=== PATIENT | male | born 1985 | race Caucasian/White ===

== ENCOUNTER 2022-02-22 01:48 | Emergency (ER) | payer BC, SELFPAY ==
[2022-02-22 01:50] VITALS: BP 131/95; PULSE 83; RESP 13; TEMP 35.8; O2SAT 100; BMI 22.4
--- NOTE | 2022-02-22 01:54 | RAD_ITS ---
STUDY: X-RAY CHEST REASON FOR EXAM: Male, 36 years old. cp TECHNIQUE: Single AP portable view of the chest. COMPARISON: None. FINDINGS: The lungs are clear and expanded. There is no demonstrated pleural abnormality. Normal size heart. Normal mediastinum and keith. Normal visualized pulmonary arteries. Normal visualized aortic arch and descending thoracic aorta. Normal visualized thoracic spine. Old healed right clavicle fracture. There is no demonstrated abnormality of the visualized soft tissue structures of the upper abdomen. RAD/Chest 1 View (Portable) IMPRESSION: No demonstrated acute cardiopulmonary process. Electronically Signed: Tanya Raygoza MD at 2:24 EST ,
--- NOTE | 2022-02-22 01:55 | EDS_ITS ---
HPI History of Present Illness Chief Complaint: Chest Pain Informant: patient Onset/Context/Timing Onset: Days Narrative Narrative: Patient presents after having 2 brief episodes of tachycardia and chest pain. Both times he was sitting at rest. His heart rate would rise to around 150. He states he would do deep breathing for a minute or 2 and his heart rate would slow back down. He would have chest pressure during the episode but as soon as his heart rate slowed down the chest pressure would lindsey. He believes he may have thoracic outlet syndrome after breaking his right clavicle approximate 10 years ago. He states his right arm stays darkly discolored when being held in his side and will drain when he raises it over his head. [facility] Medical History Depression Medical History no medical history Home Medications clonazepam 0.5 mg tablet 0.5 mg PO DAILY 02/22/22 [History Last Taken Unknown] paroxetine HCl 40 mg tablet (Paxil) 0.5 mg PO QHS 02/22/22 [History Last Taken Unknown] Allergy/AdvReac Type Severity Reaction Status Date / Time No Known Allergies Allergy Verified 02/22/22 01:54 Surgical History no surgical history Social History Smoking Status: Current every day smoker tobacco type: cigarettes ROS ROS ED Constitutional Constitutional ED: Denies chills or fever(s) Eyes Eyes: Denies change in vision or discharge from eye(s) ENT ENT ED: Denies discharge from eye(s), rhinorrhea or sore throat Cardiovascular Cardiovascular: Reports chest pain and racing heartbeat Respiratory/Chest Respiratory/Chest: Denies cough or dyspnea Gastrointestinal Gastrointestinal: Denies abdominal pain, diarrhea, nausea or vomiting Genitourinary Genitourinary ED: Denies dysuria Musculoskeletal Musculoskeletal: Denies back pain or extremity pain Integumentary Denies Abrasions or rash Neurologic Neurologic: Denies headache(s) or weakness Psychiatric Psychiatric: Denies anxiety or depression Allergic/Immunologic Allergic/Immunologic ED: Denies lip swelling or urticaria EXAM Physical Exam Const Vital Signs: 02/22/22 01:50 02/22/22 01:52 Temperature 96.5 F L Temperature Source Temporal Pulse Rate 83 Respiratory Rate 13 Respiratory Effort Normal Non-Labored Blood Pressure 131/95 H Blood Pressure Mean 107 Pulse Ox 100 Oxygen Delivery Method Room Air Positive well nourished and well developed General Appearance ED: well developed HEENT Reports normocephalic and head/scalp atraumatic Eyes PERRL and EOMs intact bilaterally Neck supple Chest Wall inspection of chest normal and palpation of chest normal Resp normal respiratory effort and clear to auscultation bilaterally Cardio regular rate and regular rhythm GI normal to inspection, nondistended, normoactive bowel sounds Palpation: soft Extremity normal to inspection Neuro oriented x3 and no sensory deficits noted Sensorium / Orientation: alert Motor Exam: strength 5/5 throughout Psych mental status grossly normal Skin no rashes or lesions noted MDM MDM MDM Narrative Medical decision making narrative: Patient placed on monitor car operator. EKG, chest x-ray, lab work obtained. Lab Data Attestation: I reviewed the patient's lab results. Labs: Laboratory Results - last 24 hr 02/22/22 02/22/22 02/22/22 01:55 01:55 01:55 WBC 7.6 RBC 5.25 Hgb 15.8 Hct 47.2 MCV 89.9 MCH 30.1 MCHC 33.5 RDW Std Deviation 43.2 RDW Coeff of Callie 13.1 Plt Count 247 MPV 8.6 Immature Gran % (Auto) 0.300 Neut % (Auto) 42.4 L Lymph % (Auto) 45.4 H [place] % (Auto) 9.7 Eos % (Auto) 1.9 Baso % (Auto) 0.3 Absolute Neuts (auto) 3.2 Absolute Lymphs (auto) 3.43 Nucleated RBC % 0 D-Dimer Quant (PE/DVT) 0.34 Sodium 138 Potassium 3.6 Chloride 103 Carbon Dioxide 30.0 Anion Gap 5 BUN 17 Creatinine 0.90 Estim Creat Clear Calc 110.42 Est GFR (MDRD) Af Amer 123 Est GFR (MDRD) Non-Af 101 BUN/Creatinine Ratio 18.9 Glucose 109 H Calcium 9.1 Magnesium 2.4 Troponin I High Sens 17 Radiography Chest X-Ray - ED: 1 View, Read by ED Physician, Normal, Heart, Lungs and Mediastinum Diagnostic Testing: Clinical Impression(s) from Imaging Studies Chest X-Ray 02/22/22 01:54 IMPRESSION: No demonstrated acute cardiopulmonary process. Electronically Signed: Tanya Raygoza MD at 2:24 EST , EKG Initial EKG: Attestation: I personally reviewed and interpreted this EKG as follows: Interpretation: Sinus Rhythm (Sinus 86 with no acute ischemia.) Treatment and Re-Evaluation Narrative: CBC and chemistry studies unremarkable. D-dimer is normal at 0.34. Troponin is normal at 17. Chest x-ray per my interpretation reveals no acute abnormalities. Radiology interpretation is reviewed and agrees. EKG reveals no ischemia. I reviewed the patient's monitor car operator while he was in the department. He is had no arrhythmias noted. He was advised to help with his primary care physician if he keeps having frequent episodes as he may require a Holter monitor. He is requesting a local orthopedic for follow-up as he is concerned for outlet syndrome from his broken clavicle. I will refer him to Dr. Garcia who is on-call for orthopedics tonight. I will also give him Dr. Walls's name for vascular evaluation if needed. Discharge Plan Triage Chief Complaint: Chest Pain ED Provider: Amna Cardona Dx/Rx/DC Orders Clinical Impression: Palpitations Instructions: ED Palpitations Prescriptions: No Action clonazepam 0.5 mg Tablet 0.5 mg PO DAILY paroxetine HCl [Paxil] 40 mg Tablet 0.5 mg PO QHS Primary Care Provider: Care Physician,No Primary Referrals: Jonny Walls MD [Med Staff - Active Staff] - As Needed Claude Garcia DO [Med Staff - Active Staff] - As Needed Care Physician,No Primary [Primary Care Provider] - Disposition Disposition: Home, Self Care
[2022-02-22 02:03] LABS: Absolute Lymphocyte Count 3.43 X10^3/uL (0.83-4.51); Absolute Neutrophil Count 3.2 X10^3/uL (2.0-7.7); Basophil# 0.02 X10^3/uL; Basophil% 0.3 % (0-1); Eosinophil# 0.14 X10^3/uL; Eosinophils% 1.9 % (0-5); Hematocrit 47.2 % (40-54); Hemoglobin 15.8 g/dL (13.0-16.5); Lymphocyte # 3.43 X10^3/ul (0.83-4.51); Lymphocyte % 45.4 % (19-41); Mean Corp Hgb Conc 33.5 g/dL (32-36); Mean Corpuscular Hgb 30.1 pg (27.0-32.0); Mean Corpuscular Volume 89.9 fL (80-94); Mean Platelet Vol. 8.6 fl (6.2-12.0); Monocyte# 0.73 X10^3/uL; Monocyte% 9.7 % (0-10); NRBC Flagged by Analyzer 0 % (0-5); Neutrophil # 3.21 X10^3/uL (2.7-7.7); Neutrophil % 42.4 % (47-70); Platelet Count 247 K/mm3 (150-450); RBC Distribution Width CV 13.1 % (11.6-14.6); RBC Distribution Width SD 43.2 fl (35.1-43.9); Red Blood Count 5.25 M/mm3 (4.6-6.2); White Blood Count 7.6 K/mm3 (4.4-11.0)
[2022-02-22 02:18] LABS: D-Dimer Quantitative (DVT/PE) 0.34 FEU/ug/m (0.27-0.49)
[2022-02-22 02:20] LABS: Anion Gap 5 (5-15); BUN 17 mg/dL (7-18); BUN/Creat Ratio 18.9 RATIO (10-20); Calcium,Total 9.1 mg/dL (8.5-10.1); Chloride 103 mmol/L (98-107); EST Glomerular Filtration Rate 101 mL/min (>60); Est Glom Filt Rate - Afr Amer 123 mL/min (>60); Estimated Creatinine Clearance 110.42 ml/min; Glucose 109 mg/dL (74-106); Magnesium 2.4 mg/dL (1.6-2.6); Potassium 3.6 mmol/L (3.5-5.1); Sodium Level 138 mmol/L (136-145); Troponin-I HS 17 pg/mL (3.0-78.0)
[2022-02-22] MEDS: 0.9% Normal Saline 1,000 ML 1000 ML IV (02:22)
[2022-02-22 03:04] VITALS: BP 123/81; PULSE 87; RESP 18; O2SAT 98
== END 2022-02-22 03:21 | disposition home or self-care (01) ==
PROVIDERS: Emergency Provider Emergency Medicine; Visit Provider Emergency Medicine
DX: R00.2 Palpitations (principal); F17.210 Nicotine dependence, cigarettes, uncomplicated; F32.A Depression, unspecified; Z79.899 Other long term (current) drug therapy
CPT/HCPCS: 71045; 80048; 83735; 84484; 85025; 85379; 93005; 96360; 99284; J7030; A4216

== ENCOUNTER 2022-03-08 06:52 | Day surgery (SDC) | payer BC, SELFPAY ==
[2022-03-07 08:44] VITALS: BMI 21.4
--- NOTE | 2022-03-08 16:31 | OP.PCM_ITS ---
Report of Operation Date of Procedure: 03/08/22 Pre-Operative Diagnosis: venous thoracic outlet syndrome Post-Operative Diagnosis: same Surgery/Procedure Performed:: right upper extremity and SVC venogram Description of Surgical Findings:: external compression of right subclavian vein by lateral segment of fractured clavicle Surgeon: Jonny Walls Type of Anesthesia: Local and Sedation,Conscious Estimated Blood Loss (mL): 3 Description of Procedure: HPI: Patient is a 36-year-old male who is several years prior suffered a fractured right clavicle. 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 Over the last year he is noted that the overlap of the 2 clavicle segments has increased and over the last several months he has noted increasing arm edema and prominent veins with physical activity. Edema improves with lowering his arm and ceasing activity. He presents now for imaging with [facility] to evaluate for venous thoracic outlet. Description of procedure: Upon but informed consent and verification correct patient procedure and site the patient was taken the Patient Care Secretary where he was positioned prepped and draped in usual sterile fashion. Time was then performed and conscious sedation administered with intermittent doses of Versed and fentanyl. Skin was anesthetized with 1% lidocaine and under ultrasound guidance the right basilic vein was accessed with micropuncture needle and wire. This was then exchanged for micropuncture sheath through which right upper extremity venogram and central venogram was performed. Multiple oblique views of contrast transit at the subclavian vein adjacent to the clavicle fracture were obtained. The sheath was then withdrawn and manual pressure held followed by dry sterile dressing. Radiograph interpretation: Right basilic, axillary veins normal caliber with no stenosis. Extrinsic compression of the subclavian vein adjacent to the fragment of clavicle. Normal caliber of innominate and superior vena cava veins. No significant change in compression with arm abduction.
== END 2022-03-08 09:30 | disposition home or self-care (01) ==
LOC: CLSP 06:54
PROVIDERS: Referring Provider Surgery Trauma Surgery; Visit Provider Surgery Trauma Surgery
DX: I87.1 Compression of vein (principal); G54.0 Brachial plexus disorders; F32.A Depression, unspecified; F17.210 Nicotine dependence, cigarettes, uncomplicated; R60.9 Edema, unspecified; R07.89 Other chest pain
CPT/HCPCS: 36005; 36010; 75820; 75827; 76937; 99152; 99153; J7040

== ENCOUNTER 2022-03-31 17:51 | Emergency (ER) | payer BC, SELFPAY ==
[2022-03-31 17:52] VITALS: BP 150/74; PULSE 113; RESP 16; TEMP 36.7; O2SAT 99; BMI 22.8
--- NOTE | 2022-03-31 18:52 | ED.RN ---
PT COMES OUT TO THE NURSING STATION. HE REPORTS THAT HE HAS A CUT ON HIS FINGER ALL THE WAY TO THE BONE. I HAVE BEEN WAITING FOR AN HOUR AND I CANNOT BELIEVE THAT I HAVE HAD TO WAIT THIS LONG. PT INFORMED THAT HE IS WAITING FOR THE MD TO BE AVAILABLE FOR SUTURING. HE REPORTS THAT HE CANNOT WAIT ANY LONGER AND THAT HE IS LEAVING. 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 PT PLACED HIS IDS AND INFORMATION ON THE NURSING STATION DESK.
--- NOTE | 2022-03-31 20:54 | EX.ED.UPPERE ---
HPI History of Present Illness Chief Complaint: Laceration Informant: patient Occured/Mechanism Comment: accidentally incised Onset/Context/Timing Onset: Today (JPTA) Context: Sudden Onset Timing: Continuous Quality of Pain: - (sore) Location: left index finger Current Severity: Mild Maximum Severity: Mild Worsened by: palpation Relieved by: leaving alone Associated Symptoms Associated Symptoms: Negative for Parasthesia, Weakness or Loss of Funtion Narrative Narrative: Patient states he was using a clean knife to cut something accidentally cut his left index finger. RHD. Tetanus Immunization: <5 years PFSH PFS Medical History Depression Right clavicle fracture Home Medications clonazepam 0.5 mg tablet 0.5 mg PO DAILY 02/22/22 [History Last Taken Unknown] paroxetine HCl 40 mg tablet (Paxil) 0.5 mg PO QHS 02/22/22 [History Last Taken Unknown] aspirin 81 mg tablet,delayed release 81 mg PO DAILY 03/30/22 [History Last Taken Unknown] Allergy/AdvReac Type Severity Reaction Status Date / Time No Known Allergies Allergy Verified 02/22/22 01:54 Family History Uncle Cancer lung Aunt Breast cancer Social History Smoking Status: Current every day smoker tobacco type: cigarettes alcohol intake: never substance use type: does not use ROS ROS ED Constitutional Constitutional ED: Denies chills or fever(s) Musculoskeletal Musculoskeletal: Reports extremity pain; Denies neck pain Integumentary Reports wounds; Denies Abrasions or rash Neurologic Neurologic: Denies paresthesias or weakness EXAM Physical Exam Const Vital Signs: 03/31/22 17:52 Temperature 98.1 F Temperature Source Temporal Pulse Rate 113 H Respiratory Rate 16 Blood Pressure 150/74 H Blood Pressure Mean 99 Pulse Ox 99 Oxygen Delivery Method Room Air Positive well nourished and well developed General Appearance ED: well developed and NAD Neck full ROM and supple Back/Spine normal ROM and normal to inspection Extremity Extremity Narrative: 1.5 cm full-thickness linear laceration to the radial aspect of the left index finger DIPJ. FDS, FDP, extensor all intact, no nail injury. No bone exposed. Brisk venous bleeding no pulsatile arterial bleeding. Brisk cap refill distally. No bony tenderness. Neuro oriented x3, no focal motor deficits and no sensory deficits noted Sensorium / Orientation: alert Psych mental status grossly normal and thought process normal Skin Skin Narrative: Clean appearing linear 1.5 cm full-thickness laceration to the radial aspect of the left index finger see above Rashes: no rashes MDM MDM MDM Narrative Medical decision making narrative: Patient requesting sutures, I agree that is a reasonable way to go. Upon seeing him and discussing that with him, I discussed the fact that I had someone else with a wound that I needed to work on that had been waiting for some time prior to my examining him, he said he understood. However when I went back to repair him, he had eloped. 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 Discharge Plan Triage Chief Complaint: Laceration ED Provider: Shamir Dolan Dx/Rx/DC Orders Clinical Impression: Laceration of left index finger Prescriptions: No Action clonazepam 0.5 mg Tablet 0.5 mg PO DAILY paroxetine HCl [Paxil] 40 mg Tablet 0.5 mg PO QHS Primary Care Provider: Care Physician,No Primary Referrals: Care Physician,No Primary [Primary Care Provider] - Disposition Disposition: Elopement
== END 2022-03-31 18:50 | disposition left against medical advice (07) ==
PROVIDERS: Emergency Provider Emergency Medicine; Visit Provider Emergency Medicine
DX: S61.211A Laceration without foreign body of left index finger without damage to nail, initial encounter (principal); W26.0XXA Contact with knife, initial encounter; Z79.82 Long term (current) use of aspirin; F17.210 Nicotine dependence, cigarettes, uncomplicated; F32.A Depression, unspecified; Z79.899 Other long term (current) drug therapy